=== PATIENT | male | born 1955 | race Caucasian/White ===

== ENCOUNTER 2017-07-20 22:52 | Emergency (ER) | payer BC ==
[2017-07-20 22:56] VITALS: BP 118/82; PULSE 76; TEMP 98.2; BMI 25.0
[2017-07-20] MEDS ORDERED: DIPHTH,PERTUSS(ACELL),TET 0.5 ML DISP.SYRIN IM ONE (23:50)
--- NOTE | 2017-07-20 23:56 | PDOC ---
History of Present Illness - General Chief Complaint: Injury Stated Complaint: LACERATION Time Seen by Provider: 07/20/17 23:00 History Source: Patient Exam Limitations: No Limitations - History of Present Illness Initial Comments: 07/20/17 23:51 This 62-year-old male without significant past medical history who presents emergency Department with laceration sustained to his left index finger while attempting to open a bottle of wine. Patient states he had a knife in his hand which she had just fully sharpened when he was cutting the falling on a bottle of wine. The knife slipped and struck him on the left index finger causing laceration. Patient states he immediately washed his hands at home with warm running tap water and antibacterial soap and then presented to the emergency room for treatment. He is unsure of his last tetanus shot. Past History - Past Medical History Allergies/Adverse Reactions: Allergies Allergy/AdvReac Type Severity Reaction Status Date / Time No Known Allergies Allergy Verified 07/20/17 22:56 Home Medications: Ambulatory Orders Aspirin, Enteric Coated [Ecotrin] 325 mg PO BID 07/11/11 Hydrocodone Bit/Acetaminophen [Vicodin 5-500 Tablet] 1 combo PO Q6H 07/11/11 Tramadol HCl 50 mg PO TID 07/11/11 - Surgical History Neurologic Surgery: (CHRONIC PAIN MANAGEMENT W/NARCOTICS) - Immunization History Td Vaccination: No Immunization Up to Date: No - Suicide/Smoking/Psychosocial Hx Smoking Status: No Smoking History: Never smoked Have you smoked in the past 12 months: No Number of Cigarettes Smoked Daily: 0 Information on smoking cessation initiated: No Hx Alcohol Use: No Drug/Substance Use Hx: No Review of Systems - Review of Systems Able to Perform ROS?: Yes Is the patient limited Irish proficient: No Constitutional: No: Symptoms Reported HEENTM: No: Symptoms Reported Respiratory: No: Symptoms reported Cardiac (ROS): No: Symptoms Reported ABD/GI: No: Symptoms Reported : No: Symptoms Reported Musculoskeletal: No: Symptoms Reported Integumentary: Yes: See HPI Neurological: No: Symptoms reported Endocrine: No: Symptoms Reported Hematologic/Lymphatic: No: Symptoms Reported *Physical Exam - Vital Signs Last Vital Signs Temp Pulse Resp BP Pulse Ox 98.2 F 76 16 118/82 100 07/20/17 22:54 07/20/17 22:54 07/20/17 22:54 07/20/17 22:54 07/20/17 22:54 - Physical Exam Integumentary: positive: Other (2 cm superficial linear laceration noted to the proximal phalange on dorsal radial aspect of the left index finger) Procedures - Consent Consent obtained: Verbal, From Patient - Laceration/Wound Repair Left Dorsal Finger 2nd digit Wound Length: to 2.5 cm Wound Explored: clean Wound's Depth, Shape: superficial, linear Irrigated w/ Saline: Yes Betadine Prep: Yes Anesthesia: 1% Lidocaine Amount of Anesthetic (ccs): 4 Wound Debrided: minimal Wound Repaired With: Sutures Suture Size/Type: 5:0 Number of Sutures: 5 Layer Closure: No Sterile Dressing Applied: Yes Splint Applied: No Progress: 07/20/17 23:58 patient tolerated well Medical Decision Making - Medical Decision Making 07/20/17 23:53 A/P: 62-year-old male with laceration to left index finger 2 cm superficial linear laceration to the proximal phalanx of the dorsal radial aspect of the left index finger Bleeding controlled with bandage placed at home Wound is clean with no foreign bodies present Full sensation noted distal to injury Capillary refill is less than 2 seconds Boostrix, laceration repair-see procedure note for details, discharge *DC/Admit/Observation/Transfer Diagnosis at time of Disposition: Laceration - Discharge Dispostion Disposition: HOME Condition at time of disposition: Stable Decision to Admit order: No - Referrals - Patient Instructions Printed Discharge Instructions: DI for Suture Removal Additional Instructions: Keep wound clean and dry Avoid strenuous activity/exercise to create a hot or sweaty environment until sutures are removed Reapply bacitracin ointment 2 times a day until sutures are removed Return for a wound check in 2 days. Return to emergency Department or private physician in 7-10 days for suture removal May use Tylenol or Motrin for pain relief Return immediately to emergency department for redness, swelling, pain, or signs of infection - Post Discharge Activity
== END 2017-07-21 00:23 | disposition home or self-care (01) ==
LOC: JER 22:52
PROC: 3E0234Z Introduction of Serum, Toxoid and Vaccine into Muscle, Percutaneous Approach (ICD-10-PCS; principal; 2017-07-20)
PROC: 0HQGXZZ Repair Left Hand Skin, External Approach (ICD-10-PCS; 2017-07-20)
DX: S61.211A Laceration without foreign body of left index finger without damage to nail, initial encounter (principal); W26.0XXA Contact with knife, initial encounter; Y93.89 Activity, other specified; Y92.018 Other place in single-family (private) house as the place of occurrence of the external cause; Y99.8 Other external cause status
CPT/HCPCS: 90715; 99281-25

== ENCOUNTER 2024-10-18 06:15 | Day surgery (SDC) | payer BC, OTHER ==
[2024-10-16 13:16] VITALS: BMI 25.8
[2024-10-18] MEDS ORDERED: LIDOCAINE HCL/PF 1% SDV 5ML VIAL ONE (07:33)
[2024-10-18] MEDS ORDERED: DEXAMETHASONE SOD PHOSPHATE 10 MG/1 ML VIAL ONE (07:34)
[2024-10-18 08:37] VITALS: RESP 18
[2024-10-18 11:04] VITALS: BP 144/72; PULSE 57; TEMP 97.1
== END 2024-10-18 11:14 | disposition home or self-care (01) ==
LOC: JASU-SURG 06:15
PROVIDERS: ATTEND Pain Medicine Pain Medicine
PROC: 3E0R3BZ Introduction of Anesthetic Agent into Spinal Canal, Percutaneous Approach (ICD-10-PCS; 2024-10-18)
PROC: 3E0R33Z Introduction of Anti-inflammatory into Spinal Canal, Percutaneous Approach (ICD-10-PCS; principal; 2024-10-18 10:44)
DX: M54.12 Radiculopathy, cervical region (principal)
CPT/HCPCS: 76000-TC-FY; J1100

== ENCOUNTER 2024-11-21 06:02 | Day surgery (SDC) | payer BC, OTHER ==
[2024-11-21] MEDS: BUPIVACAINE HCL/PF 0.5% (5MG/ML) 10 ML VIAL IJ ONE ×3 (10:24→10:29)
[2024-11-21] MEDS: IOHEXOL 180 MG/1 ML ML IJ ONE (10:29)
[2024-11-21 10:45] VITALS: BP 134/82; PULSE 52; RESP 18; TEMP 97.7
[2024-11-21] MEDS ORDERED: ACETAMINOPHEN 500 MG TABLET (FP) PO PRN (18:48)
== END 2024-11-21 11:00 | disposition home or self-care (01) ==
LOC: JASU-SURG 06:02
PROVIDERS: ATTEND Pain Medicine Pain Medicine
PROC: 3E0T33Z Introduction of Anti-inflammatory into Peripheral Nerves and Plexi, Percutaneous Approach (ICD-10-PCS; 2024-11-21)
PROC: 3E0T3BZ Introduction of Anesthetic Agent into Peripheral Nerves and Plexi, Percutaneous Approach (ICD-10-PCS; principal; 2024-11-21 10:15)
DX: M47.812 Spondylosis without myelopathy or radiculopathy, cervical region (principal)
CPT/HCPCS: 76000-TC-FY